=== PATIENT | female | born 2000 | race Caucasian/White ===

== ENCOUNTER 2020-02-22 13:06 | Emergency (ER) | payer BC, SELFPAY ==
[2020-02-22 13:24] VITALS: BP 110/69; PULSE 16; RESP 16; TEMP 37.1; O2SAT 99
--- NOTE | 2020-02-22 13:50 | ED.WOUNDLAC ---
HPI - Wound/Laceration General Chief Complaint: Wound/Laceration Stated Complaint: left index finger laceration Time Seen by Provider: 02/22/20 13:35 Source: patient and RN notes reviewed Mode of arrival: ambulatory Limitations: no limitations History of Present Illness HPI narrative: 19 old female presents with concern for laceration to the second digit of her left hand. She reports she sliced her finger while cutting her breakfast. She reports she is up-to-date on her vaccinations. She denies any weakness, numbness, loss of sensation, decreased range of motion of the digit. Extremity Location: Left: hand Related Data Home Medications Medication Instructions Recorded Confirmed No Home Medications 02/22/20 02/22/20 Allergies Allergy/AdvReac Type Severity Reaction Status Date / Time No Known Allergies Allergy Verified 02/22/20 13:15 Review of Systems Review of Systems: Narrative: CONSTITUTIONAL: Denies malaise, chills, sweats, or fever. CARDIOVASCULAR: Denies edema. RESPIRATORY: Denies dyspnea. SKIN: Reports laceration of the second digit of the left hand MUSCULOSKELETAL: Denies muscle or bone pain NEUROLOGIC: Denies numbness, weaknessn. All systems reviewed & are unremarkable except as noted in HPI and below PMFSH Social History Social History Gender identity (if verbalized by the patient): Female Comments At time of signature, agree with nursing past medical, surgical, social and family history. There is no relevant family history pertinent to the presenting complaint Exam Narrative: Exam Narrative: GENERAL: Well-appearing, well-nourished, and in no acute distress. HEAD: Normocephalic, atraumatic. EYES: PERRLA, conjunctivae clear NECK: Supple. CHEST: Speaks in full sentences. No respiratory distress. HEART: Regular rate and rhythm. Normal and equal peripheral pulses. EXTREMITIES: Left hand and second digit of hand have normal strength and sensation. 5/5 strength with second digit flexion, extension. Range of motion normal. No clubbing, cyanosis, or edema noted. No tenderness. Normal digital cascade with flexion of fingers, median, ulnar and radial nerve intact. Normal sensation of each side of finger. Can perform 'okay' sign, 'cross over finger test of index and middle fingers' and 'thumbs up' sign. No scissoring. Normal thumb opposition. Good capillary refill and radial pulse. Distal capillary refill ?3 seconds. SKIN: Warm, dry, no rash. 1.5 cm linear superficial laceration noted to the lateral edge of the second digit of the left hand NEURO: Alert and oriented x3. PSYCH: Normal mood and affect Course Course Emergency Course: Patient is aware of diagnosis, understands and agrees to treatment plan. Anticipatory guidance given. Patient agrees to follow-up as directed and is aware of reasons to seek care at the emergency department. Portions of this record may have been created with voice recognition software Vital Signs Vital signs: Vital Signs Temperature 98.7 F 02/22/20 13:24 Pulse Rate 16 L 02/22/20 13:24 Respiratory Rate 16 02/22/20 13:24 Blood Pressure 110/69 02/22/20 13:24 Pulse Oximetry 99 02/22/20 13:24 Temperature 98.7 F 02/22/20 13:24 Pulse Rate 16 L 02/22/20 13:24 Respiratory Rate 16 02/22/20 13:24 Blood Pressure 110/69 02/22/20 13:24 Pulse Oximetry 99 02/22/20 13:24 Reviewed. Procedures Laceration Laceration 1: Date: 02/22/20 Time: 13:44 Site: hand Side (If applicable): left (Second digit) Size (cm): 1.5 Description: linear Depth: simple, single layer Pre-repair: irrigated ====== Skin Level ====== Skin layer closed with: dermabond ====== Subcutaneous Layer ====== ====== Muscle Layer ====== ====== Tendon Layer ====== MDM - Wound/Laceration MDM Narrative Medical decision making narrative: Exam findings show no acute concerns or changes; patient is non-toxi
== END 2020-02-22 14:07 | disposition home or self-care (01) ==
PROVIDERS: Emergency Provider Nurse Practitioner
DX: S61.412A Laceration without foreign body of left hand, initial encounter (principal); W26.0XXA Contact with knife, initial encounter; Y93.G1 Activity, food preparation and clean up
CPT/HCPCS: 12001; 99212; G0463

== ENCOUNTER 2021-03-08 09:45 | Emergency (ER) | payer BC, SELFPAY ==
[2021-03-08 09:56] VITALS: BP 104/69; PULSE 98; RESP 12; TEMP 36.6; O2SAT 99
--- NOTE | 2021-03-08 10:15 | ED.URI ---
HPI - URI/Sore Throat General Chief Complaint: Upper Respiratory Infection Stated Complaint: upper respiratory infection Time Seen by Provider: 03/08/21 10:05 Source: patient and RN notes reviewed Mode of arrival: ambulatory Limitations: no limitations History of Present Illness HPI Narrative: Patient presents today with 1+ week history of nasal congestion, sinus pressure, facial pressure, teeth pain, bilateral ear pain, right greater than left. She also reports a mild cough and sore throat. Symptoms have been worsening since onset. Denies history of asthma or COPD. She is a non-smoker. She has been vaccinated against COVID-19. She has been taking Sudafed, NyQuil, Tylenol, and Benadryl with mild short-term relief. MD elicited complaint: nasal congestion and sinus pain Related Data Allergies Allergy/AdvReac Type Severity Reaction Status Date / Time No Known Allergies Allergy Verified 03/08/21 10:00 Review of Systems Review of Systems: Narrative: CONSTITUTIONAL: Denies body aches, fever, chills, or sweats. EYES: Denies visual changes, redness, or discharge. ENT: + Ear pain, sore throat CARDIOVASCULAR: Denies chest pain, palpitations, or edema. RESPIRATORY: Denies dyspnea. + Mild cough GASTROINTESTINAL: Denies abdominal pain, nausea, vomiting, or diarrhea. GENITOURINARY: Denies dysuria or hematuria. SKIN: Denies rash, itching, or wounds. MUSCULOSKELETAL: Denies back pain, joint pain, or myalgia. NEUROLOGIC: Denies headache, numbness, tingling, or weakness. PSYCH: Denies depression or anxiety. [facility] Social History Social History (Updated 03/08/21 @ 10:19 by Sonia Solis, [facility], ) Smoking status: Never smoker Gender identity (if verbalized by the patient): Female Comments At time of signature, I have reviewed and agree with nursing past medical, surgical, social and family history unless otherwise noted. Please see nursing chart for further information. There is no relevant family history pertinent to the presenting complaint Exam Narrative: Exam Narrative: GENERAL: ill-appearing, well-nourished, and in no acute distress. HEAD: Normocephalic, atraumatic. EYES: EOMI. No redness or drainage. Conjunctivae normal. ENT: Mucous membranes pink and moist. Nares congested with purulent discharge. Right TM is erythematous and bulging. Left TM normal. Sinuses tender to palpation. Throat normal. Uvula midline. NECK: Normal AROM. Supple. No lymphadenopathy. CHEST: No respiratory distress. Clear to auscultation. HEART: Regular rate and rhythm. No murmur appreciated. Normal peripheral pulses. EXTREMITIES: Normal range of motion. No edema. SKIN: Warm, dry, no rash. Capillary refill normal. Normal skin turgor. NEURO: No focal deficits. Alert and oriented x3. Gait steady. PSYCH: Normal affect. No signs of depression or anxiety. Course Vital Signs Vital signs: Vital Signs Temperature 98 F 03/08/21 09:56 Pulse Rate 98 03/08/21 09:56 Respiratory Rate 12 03/08/21 09:56 Blood Pressure 104/69 03/08/21 09:56 Pulse Oximetry 99 03/08/21 09:56 Temperature 98 F 03/08/21 09:56 Pulse Rate 98 03/08/21 09:56 Respiratory Rate 12 03/08/21 09:56 Blood Pressure 104/69 03/08/21 09:56 Pulse Oximetry 99 03/08/21 09:56 Reviewed MDM - URI/Sore Throat Differential Diagnosis Differential diagnosis: Likely upper respiratory infection, otitis media, sinusitis, viral infection, bronchitis and pharyngitis Critical Care Time Critical Care Time Critical Care Time: No Discharge Plan Discharge Clinical Impression: Sinusitis Qualifiers: Sinusitis location: unspecified location Chronicity: acute Recurrence: not specified as recurrent Qualified Code(s): J01.90 - Acute sinusitis, unspecified Otitis media Qualifiers: Otitis media type: suppurative Chronicity: acute Laterality: right Recurrence: not specified as recurrent Spontaneous tympanic membrane rupture: without spontaneous rupture Qualified
== END 2021-03-08 10:19 | disposition home or self-care (01) ==
PROVIDERS: Emergency Provider Nurse Practitioner; PCP Family Medicine
DX: J01.90 Acute sinusitis, unspecified (principal); H66.001 Acute suppurative otitis media without spontaneous rupture of ear drum, right ear
CPT/HCPCS: 99213; G0463

== ENCOUNTER 2021-09-05 10:11 | Emergency (ER) | payer BC, SELFPAY ==
--- NOTE | 2021-09-05 10:13 | ED.URI ---
HPI - URI/Sore Throat General Chief Complaint: Ear Stated Complaint: sore throat/lt ear pain/avila Time Seen by Provider: 09/05/21 10:20 Source: patient, RN notes reviewed and old records reviewed Mode of arrival: ambulatory Limitations: no limitations History of Present Illness HPI Narrative: 21-year-old female presents to the [facility] with complaints of a sore throat, ear pain and a frontal headache since yesterday. Is that she take Sudafed yesterday. Has not taken her temperature. Denies chest pain or abdominal pain. No nausea vomiting or diarrhea. No other treatment prior to arrival. Patient states that she had Covid a year ago, she is also Covid vaccinated. MD elicited complaint: sore throat and other (Headache, Left ear pain) Related Data Home Medications Medication Instructions Recorded Confirmed dextroamphetamine-amphetamine 09/05/21 etonogestrel [Nexplanon] 1 implant SUBDERMAL ONCE 09/05/21 09/05/21 Allergies Allergy/AdvReac Type Severity Reaction Status Date / Time No Known Allergies Allergy Verified 09/05/21 10:16 Review of Systems Review of Systems: All systems reviewed & are unremarkable except as noted in HPI and below Constitutional: Constitutional: Reports no additional constitutional complaints, Denies chills and Denies fever(s) Eyes: Eyes: Reports no additional eye complaints and Denies change in vision ENT: Reports as per HPI and Reports sore throat Comments: Left ear pain Cardiovascular: Cardiovascular: Reports no additional cardiovascular complaints, Denies chest pain and Denies radiating jaw, neck or arm pain Respiratory: Respiratory: Reports no additional respiratory complaints, Denies chest congestion, Denies cough, Denies dyspnea and Denies wheezing Gastrointestinal: Gastrointestinal: Reports no additional gastrointestinal complaints, Denies abdominal pain, Denies diarrhea, Denies nausea and Denies vomiting Musculoskeletal: Musculoskeletal: Reports no additional musculoskeletal complaints and Denies back pain Integumentary/Breasts: Skin/Breast: Reports system reviewed and no additional complaints, except as docu, Denies erythema and Denies rash Neurologic: Reports as per HPI and Reports headache(s) Psychiatric: Psychiatric: Reports no additional psychiatric complaints Allergic/Immunologic: Allergic/Immunologic: Reports no additional allergic/immunologic complaints, Denies lip swelling and Denies tongue swelling PMFSH Past Medical History Medical History (Updated 09/05/21 @ 10:32 by Jackie العلي) ADHD Surgical History Surgical History (Updated 09/05/21 @ 10:25 by Jackie العلي) No significant past surgical history Social History Social History (Updated 09/05/21 @ 10:25 by Jackie العلي) Smoking status: Never smoker Occupation/Education: student Gender identity (if verbalized by the patient): Female Comments At the time of my signature, I reviewed and agree with the nursing past medical, surgical, social, and family history. There is no relevant family history pertinent to the patient complaint. Exam Const: General: healthy appearing, no acute distress and alert Nutritional Appearance: well nourished Orientation/consciousness: patient oriented x3 Limitations: no limitations and altered mental status HENMT: Head: normal to inspection Ears: external ears normal, TM's normal bilaterally and Abnormal EAC present erythema on the left and EAC tenderness on the left; no cerumen impaction and no excessive cerumen General nose exam: Normal external nose present and Normal nasal mucous membranes and turbinates present Face and sinus: normal facial exam and sinuses nontender Mouth: Yes Normal oral and palatal mucosa present Teeth and gingiva: dentition normal Throat: posterior oropharynx normal, tonsils normal and uvula midline Eyes: Conjunctivae: conjunctivae normal Pupils: Equal, round and reactive pupils present Direct Ophthalmoscopy: no photophobia Neck:
[2021-09-05 10:15] VITALS: BP 115/70; PULSE 87; RESP 12; TEMP 37.3; O2SAT 100
== END 2021-09-05 10:41 | disposition home or self-care (01) ==
PROVIDERS: Emergency Provider Nurse Practitioner
DX: J02.8 Acute pharyngitis due to other specified organisms (principal); S00.412A Abrasion of left ear, initial encounter; X58.XXXA Exposure to other specified factors, initial encounter; F90.9 Attention-deficit hyperactivity disorder, unspecified type
CPT/HCPCS: 87081; 87880; 99213; G0463

== ENCOUNTER 2021-11-07 04:10 | Emergency (ER) | payer BC, SELFPAY ==
--- NOTE | ~2021-11-07 | CT_ITS ---
EXAMINATION: CT brain wo con DATE: 11/07/2021 08:16 INDICATION: Syncope TECHNIQUE: Computed tomography (CT) of the head was performed without intravenous contrast. Sagittal and coronal reconstructions were performed. The mA was adjusted according to patient size. Iterative reconstruction technique was employed. The dose-length product was 681.00 mGy-cm. COMPARISON: head CT dated 10/24/2015 FINDINGS: No acute intracranial hemorrhage, acute infarction or abnormal extra axial fluid collection. Ventricl es are normal and symmetric. No mass/mass effect. The orbits, paranasal sinuses and mastoid air cells are normal. IMPRESSION: 1. Normal head CT. Reviewed, dictated and finalized at location B. GER FITNESS IMPRESSION: 1. Normal head CT.
[2021-11-07 04:18] VITALS: BP 90/61; PULSE 68; RESP 18; TEMP 36.1; O2SAT 100
[2021-11-07 06:33] VITALS: BP 119/72; PULSE 71; RESP 18; O2SAT 100
[2021-11-07 07:29] VITALS: BP 97/61; PULSE 70; RESP 18; O2SAT 100
--- NOTE | 2021-11-07 07:49 | ECG_ITS ---
Measurements Intervals [place] Rate: 65 P: 69 ND: 158 QRS: 42 QRSD: 89 T: 9 QT: 394 QTc: 410 Interpretive Statements SINUS RHYTHM NORMAL ECG Electronically Signed On 11-07-2021 8:17:38 [employer] by Cm Ovalle D.O.
[2021-11-07] MEDS: SODIUM CHLORIDE 0.9% IV 1,000 ML 999 ML IV CONT ×2 (08:22→09:07)
[2021-11-07 08:48] LABS: Alanine Aminotransferase 14 U/L (4-35); Albumin Level 4.8 g/dL (3.5-5.1); Alkaline Phosphatase 53 U/L (38-126); Anion Gap 9 mmol/L (8-16); Aspartate Amino Transferase 24 U/L (14-36); Bilirubin,Total 1.2 mg/dL (0.2-1.3); Blood Urea Nitrogen 14 mg/dL (7-17); Calcium 9.9 mg/dL (8.4-10.2); Carbon Dioxide 27 mmol/L (22-30); Chloride 101 mmol/L (98-107); Estimated CRCL calculation 81 ml/min; Estimated Glomerular Filt Rate > 60; Glucose 147 mg/dL (65-110); Magnesium 2.1 mg/dL (1.6-2.3); Potassium 4.3 mmol/L (3.4-5.0); Sodium 137 mmol/L (137-145)
--- NOTE | 2021-11-07 09:07 | ED.SYNCOPE ---
HPI - Syncope General Chief Complaint: Syncope Stated Complaint: syncope, head injury Time Seen by Provider: 11/07/21 07:47 Source: patient and family Mode of arrival: ambulatory Limitations: no limitations History of Present Illness HPI narrative: Patient woke up at 2 AM with abdominal cramps, went to the bathroom had massive amount of diarrhea, went back to bed 3 minutes later went back to the bathroom with another massive amount of diarrhea then stood up and felt with loss of consciousness and left eyebrow laceration. Patient went to her room again then back to the bathroom with another massive amount of diarrhea. Patient reports exposure to one of her friend few days ago who tested positive for Covid and had similar presentation of diarrhea. Last Covid vaccine was January 2021. Patient had Covid infection July 2021 Related Data Home Medications Medication Instructions Recorded Confirmed dextroamphetamine-amphetamine 10 mg PO DAILY 09/05/21 09/05/21 etonogestrel [Nexplanon] 1 implant SUBDERMAL ONCE 09/05/21 09/05/21 Allergies Allergy/AdvReac Type Severity Reaction Status Date / Time No Known Allergies Allergy Verified 09/05/21 10:16 Review of Systems Review of Systems: CONSTITUTIONAL: Denies fever, chills, or sweats. EYES: Denies visual changes, redness, or discharge. ENT: Denies rhinorrhea, congestion, sore throat, or otalgia. CARDIOVASCULAR: Denies chest pain, palpitations, or edema. RESPIRATORY: Denies cough or dyspnea. GASTROINTESTINAL: Abdominal cramps with massive diarrhea and nausea GENITOURINARY: Denies dysuria or hematuria. SKIN: Denies rash or itching. MUSCULOSKELETAL: Denies back pain, joint pain, or myalgia. NEUROLOGIC: Denies headache, numbness, or weakness. PSYCHIATRIC: Denies anxiety or depression. PMFSH Past Medical History Medical History ADHD Surgical History Surgical History No significant past surgical history Social History Social History Smoking status: Never smoker Gender identity (if verbalized by the patient): Female Exam Narrative: General appearance: Well-developed, well-nourished Skin: Normal color, 1 cm subcutaneous laceration left eyebrow Head: Normocephalic, nontraumatic Eyes: Clear conjunctiva ENT: Oropharynx normal, ears normal, nose normal Neck: Supple, nontender Chest and respiratory: Airway patent, no respiratory distress, no accessory muscle use Heart: Regular rate/rhythm Abdomen: Soft, nontender, no organomegaly, quiet bowel sounds Vascular: Normal peripheral pulses, normal capillary refill. Musculoskeletal: Normal range of motion, nontender back Neurologic: Alert and oriented ?3, [employer] is normal as tested, no gross motor deficit Course Course Emergency Course: Stable, improving Vital Signs Vital signs: Vital Signs Temperature 36.1 C L 11/07/21 04:18 Pulse Rate 68 11/07/21 04:18 Respiratory Rate 18 11/07/21 04:18 Blood Pressure 90/61 L 11/07/21 04:18 Pulse Oximetry 100 11/07/21 04:18 Temperature 36.1 C L 11/07/21 04:18 Pulse Rate 68 11/07/21 10:06 Respiratory Rate 18 11/07/21 10:06 Blood Pressure 104/67 11/07/21 10:06 Pulse Oximetry 100 11/07/21 10:06 Procedures Laceration Laceration 1: Date: 11/07/21 Time: 10:50 Site: face Side (If applicable): left Size (cm): 1 Description: linear Depth: simple, single layer Local Anesthetic: lidocaine 1% and with epi Amount of anesthesia used (mL): 2 Pre-repair: wound explored a
[2021-11-07 09:10] VITALS: BP 104/65; PULSE 67
[2021-11-07 09:12] VITALS: BP 100/60; BP 106/64; PULSE 60; PULSE 64
[2021-11-07 09:25] LABS: Add Urine Microscopic? NO; Appearance Urine Clear (Clear); Bilirubin Urine Negative (Negative); Blood Urine Negative (Negative); Color Urine Colorless (Yellow); Glucose Urine UA Negative (Negative); Ketones Urine Negative (Negative); Leukocyte Esterase Ur Negative LEU/UL (Negative); Nitrate Urine Negative (Negative); Protein Urine Negative (Negative); Urobilinogen Urine Negative mg/dL (<2.0)
[2021-11-07 09:33] LABS: Specific Grav Ur 1.003 (1.001-1.035)
[2021-11-07 10:06] VITALS: BP 104/67; PULSE 68; RESP 18; O2SAT 100
[2021-11-07 11:07] LABS: SARS-CoV-2 RNA PCR Negative
== END 2021-11-07 10:49 | disposition home or self-care (01) ==
PROVIDERS: Emergency Provider Emergency Medicine
DX: R19.7 Diarrhea, unspecified (principal); I95.1 Orthostatic hypotension; S01.112A Laceration without foreign body of left eyelid and periocular area, initial encounter; Z20.822 Contact with and (suspected) exposure to COVID-19; Z86.16 Personal history of COVID-19; F90.9 Attention-deficit hyperactivity disorder, unspecified type; W18.39XA Other fall on same level, initial encounter
CPT/HCPCS: 12011; 36415; 70450; 80053; 81003; 81025; 83735; 93005; 96360; 96361; 99284; C9803; J7030; U0003; U0005

== ENCOUNTER → 2022-06-18 15:51 | Outpatient (CLI) | payer BC, SELFPAY ==
--- NOTE | ~2022-06-18 | MR_ITS ---
EXAMINATION: MR knee LT wo con DATE: 06/18/2022 16:32 INDICATION: Left knee pain. TECHNIQUE: Magnetic resonance imaging (MRI) of the left knee was performed without intravenous contra st. COMPARISON: None. FINDINGS: Medial compartment: Medial meniscus is normal. Medial compartment cartilage is normal. Lateral compartment: Lateral meniscus is normal. Lateral compartment cartilage is normal. Patellofemoral compartment: Patellar cartilage is normal. Trochlear cartilage is normal. Ligaments and tendons: There are changes of anterior cruciate ligament reconstruction, which is intact. Posterior cruciate l igament is normal. Medial collateral ligament and lateral collateral ligament complex are normal. The re is a graft donor site involving the middle third of patellar tendon. Fluid: There is a small knee joint effusion. IMPRESSION: 1. Intact anterior cruciate ligament reconstruction. 2. Small knee joint effusion. Reviewed, dictated and finalized at location A.
== END ==
DX: M25.562 Pain in left knee (principal); M25.462 Effusion, left knee
CPT/HCPCS: 73721